=== PATIENT | female | born 1985 | race Caucasian/White ===

== ENCOUNTER 2021-10-24 20:18 | Emergency (ER) | payer BC, SELFPAY ==
[2021-10-24 20:20] VITALS: BP 137/82; PULSE 94; RESP 16; TEMP 36.7; O2SAT 100
--- NOTE | 2021-10-24 22:25 | ED.GENADULT ---
HPI - General Adult General Chief complaint: Headache Stated complaint: migraine Time Seen by Provider: 10/24/21 22:14 Source: patient and family Mode of arrival: ambulatory Limitations: no limitations History of Present Illness HPI narrative: 36-year-old female with history of headaches and migraines presenting to the emergency department for evaluation of a persistent headache that started approximately 3 PM today. Patient states that the headache started similar to her previous headaches. Patient describes as a right-sided headache that does radiate to her right lateral neck. Patient states the symptoms are typical for her migraines. Patient does report nausea and vomiting which is worse than her previous migraines. Patient also does have light sensitivity. Patient denies any falls or injuries. Patient denies any fevers. Patient does have nausea and vomiting but denies any abdominal pain. Patient did take all medications such as Excedrin without improvement. Related Data Allergies Allergy/AdvReac Type Severity Reaction Status Date / Time No Known Allergies Allergy Verified 10/24/21 20:23 Review of Systems Review of Systems: CONSTITUTIONAL: Denies fever, chills, or sweats. EYES: Denies visual changes, redness, or discharge. ENT: Denies rhinorrhea, congestion, sore throat, or otalgia. CARDIOVASCULAR: Denies chest pain, palpitations, or edema. RESPIRATORY: Denies cough or dyspnea. GASTROINTESTINAL: Denies abdominal pain, nausea, vomiting, or diarrhea. GENITOURINARY: Denies dysuria or hematuria. SKIN: Denies rash or itching. MUSCULOSKELETAL: Denies back pain, joint pain, or myalgia. NEUROLOGIC: Headache but denies any associated numbness or weakness. All systems reviewed & are unremarkable except as noted in HPI and below Exam Narrative: APPEARANCE: Wearing sunglasses and distressed due to headache HEAD: normocephalic, atraumatic. EYES: PERRLA/EOMI, conjunctivae clear. NOSE: Normal no drainage NECK: Supple. No adenopathy, no masses. RESPIRATORY: Airway patent, respirations nonlabored. Clear to auscultation bilaterally, no rales, rhonchi, wheezing. CARDIOVASCULAR: Regular rate and rhythm without murmurs rubs or gallops. ABDOMINAL: Soft, nontender, nondistended, normal bowel sounds MUSCULOSKELETAL: Moves all extremities. Strength/ROM intact, No edema, No calf tenderness. NEURO: Alert. Cranial nerves II through XII intact. Normal neuro exam, no ataxia, no pronator drift. Normal Romberg. SKIN: Warm, dry. Normal Color Course Course Emergency Course: Patient states her headache is resolved and has no headache at this time. Patient is comfortable with the plan for discharge to home. Vital Signs Vital signs: Vital Signs Temperature 98.0 F 10/24/21 20:20 Pulse Rate 94 10/24/21 20:20 Respiratory Rate 16 10/24/21 20:20 Blood Pressure 137/82 10/24/21 20:20 Pulse Oximetry 100 10/24/21 20:20 Temperature 98.0 F 10/24/21 20:20 Pulse Rate 69 10/24/21 23:55 Respiratory Rate 16 10/24/21 23:55 Blood Pressure 120/80 10/24/21 23:55 Pulse Oximetry 100 10/24/21 23:55 Medical Decision Making Vital Signs Vital Signs: Vital Signs Temperature 98.0 F 10/24/21 20:20 Pulse Rate 94 10/24/21 20:20 Respiratory Rate 16 10/24/21 20:20 Blood Pressure 137/82 10/24/21 20:20 Pulse Oximetry 100 10/24/21 20:20 Temperature 98.0 F 10/24/21 20:20 Pulse Rate 69 10/24/21 23:55 Respiratory Rate 16 10/24/21 23:55 Blood Pressure 120/80 10/24/21 23:55 Pulse Oximetry 100 10/24/21 23:55 Discharge Plan Discharge Clinical Impression: Headache Patient Disposition: Home, Self-Care Condition: Stable Instructions: Antibiotic Form, Migraine Headache (ED) Additional Instructions: Have close follow-up with your primary care physician. Follow-up/Referrals: Jack,Magnus Castillo MD [Primary Care Provider] -
[2021-10-24] MEDS: diphenhydrAMINE HCl INJ 50 MG/ML VIAL 25 MG IV PUSH (22:36)
[2021-10-24] MEDS: PROCHLORPERAZINE EDISYLATE 10 MG/2 ML VIAL IV PUSH (22:37)
[2021-10-24] MEDS: SODIUM CHLORIDE 0.9% IV 1,000 ML 999 ML IV CONT (22:39)
[2021-10-24 22:40] VITALS: BP 107/73; PULSE 82; RESP 14; O2SAT 99
[2021-10-24 23:55] VITALS: BP 120/80; PULSE 69; RESP 16; O2SAT 100
== END 2021-10-24 23:56 | disposition home or self-care (01) ==
PROVIDERS: Emergency Provider Emergency Medicine; PCP Emergency Medicine
DX: R51.9 Headache, unspecified (principal)
CPT/HCPCS: 96361; 96374; 96375; 99284; J0780; J1200; J7030